=== PATIENT | male | born 1995 ===

== ENCOUNTER 2018-07-23 10:13 | Emergency (ER) | payer BC, MEDICAID ==
--- NOTE | 2018-07-23 10:26 | UC ---
Throat Pain/Nasal Ramu HPI - HPI Summary HPI Summary: 23 yo male presents with sore throat since last night. He tells me that his sore throat started abruptly last night and this morning it was worse. Last night also vomited 3-4 times and noticed a tinge of blood he thinks. He is able to eat and drink without difficulty, but does have pain. He also complains of a rash to his left lower abdomen around his waist line that has been there for a month or so - very itchy. He has been applying OTC creams with no relief. Denies fever, chills, cough, SOB, chest pain, abdominal pain, diarrhea. - History of Current Complaint Stated Complaint: SORE THROAT,RASH,VOMITTING Time Seen by Provider: 07/23/18 10:25 Hx Obtained From: Patient Onset/Duration: Sudden Onset Severity: Moderate Pain Intensity: 5 Pain Scale Used: 0-10 Numeric - Allergies/Home Medications Allergies/Adverse Reactions: Allergies Allergy/AdvReac Type Severity Reaction Status Date / Time No Known Allergies Allergy Verified 07/23/18 10:22 PMH/Surg Hx/FS Hx/Imm Hx - Additional Past Medical History Additional PMH: None Previously Healthy: Yes - Surgical History Surgical History: None - Family History Known Family History: Positive: None - Social History Occupation: Employed Full-time Lives: With Family Alcohol Use: Weekly Substance Use Type: None Smoking Status (MU): Light Every Day Tobacco Smoker Have You Smoked in the Last Year: Yes Review of Systems Constitutional: Negative Skin: Rash Eyes: Negative ENT: Sore Throat Respiratory: Negative Cardiovascular: Negative Gastrointestinal: Vomiting Genitourinary: Negative Neurovascular: Negative Neurological: Negative Psychological: Negative All Other Systems Reviewed And Are Negative: Yes Physical Exam - Summary Physical Exam Summary: GENERAL: NAD. WDWN. No pain distress. SKIN: Left waist line with 5.0cm diameter of flat hyperpigmentation with mild scaling. No bleeding, erythema, or drainage. HEENT: Head: AT/NC Eyes: Conjunctiva clear without inflammation or discharge. Ears: Hearing grossly normal. TMs intact, no bulging, erythema, or edema. Nose: Nasal mucosa pink and moist. NTTP maxillary and frontal sinus. Throat: Posterior oropharynx moderate erythema and 2+ tonsillar enlargement. No exudates. Uvula midline. No hoarse voice or muffled voice. NECK: Supple. Mild tonsillar LAD with TTP. CHEST: CTAB. No r/r/w. No accessory muscle use. Breathing comfortably and in no distress. CV: RRR. Without m/r/g. Pulses intact. Cap refill <2seconds NEURO: Alert. CN II-XII grossly intact. PSYCH: Age appropriate behavior. Triage Information Reviewed: Yes Vital Signs: Vital Signs: Temp Pulse Resp BP Pulse Ox 99.2 F 87 18 114/68 98 07/23/18 10:24 07/23/18 10:24 07/23/18 10:24 07/23/18 10:24 07/23/18 10:24 Laboratory Tests 07/23/18 10:24 Group A Strep Rapid Positive A Vital Signs Reviewed: Yes Throat Pain/Nasal Course/Dx - Course Course Of Treatment: POC strep positive. Tinea versicolor. - Differential Dx/Diagnosis Provider Diagnoses: Strep pharyngitis. Tinea versicolor Discharge - Sign-Out/Discharge Documenting (check all that apply): Patient Departure All imaging exams completed and their final reports reviewed: No Studies - Discharge Plan Condition: Stable Disposition: HOME Prescriptions: Amoxicillin/Clavulanate TAB* [Augmentin TAB 875*] 875 mg PO BID #20 tab Eucalyptus/Menthol [Cough Drops] 1 each PO QID PRN #1 box PRN Reason: Pain Ketoconazole 2 % CREAM (NF) [Nizoral 2% CREAM (NF)] 1 applic TOPICAL BID #1 tube Patient Education Materials: Strep Throat (ED), Tinea Versicolor (ED) Forms: *Work Release Referrals: No Primary Care Phys,NOPCP [Primary Care Provider] - Additional Instructions: If you develop a fever, shortness of breath, chest pain, new or worsening symptoms - please call your PCP or go to the ED. - Billing Disposition and Condition Condition: STABLE Disposition: Home
[2018-07-23 10:40] VITALS: BP 114/68
== END 2018-07-23 10:51 | disposition home or self-care (01) ==
LOC: UCEAST 10:13
DX: J02.0 Streptococcal pharyngitis (principal); B36.0 Pityriasis versicolor; F17.200 Nicotine dependence, unspecified, uncomplicated
CPT/HCPCS: 87651; 99201; G0463

== ENCOUNTER 2018-09-14 14:23 | Emergency (ER) | payer BC ==
--- NOTE | 2018-09-14 16:26 | UC ---
Throat Pain/Nasal Ramu HPI - HPI Summary HPI Summary: sore throat for 2 days body aches - History of Current Complaint Chief Complaint: UCRespiratory Stated Complaint: GENERAL ILLNESS/THROAT PAIN Time Seen by Provider: 09/14/18 16:04 Hx Obtained From: Patient Onset/Duration: Sudden Onset, Lasting Days - 2, Still Present Severity: Moderate Pain Intensity: 5 Pain Scale Used: 0-10 Numeric Cough: None Associated Signs & Symptoms: Positive: Negative - Allergies/Home Medications Allergies/Adverse Reactions: Allergies Allergy/AdvReac Type Severity Reaction Status Date / Time No Known Allergies Allergy Verified 09/14/18 14:42 Home Medications: Home Medications Ibuprofen 600 mg PO 09/14/18 [History] PMH/Surg Hx/FS Hx/Imm Hx Previously Healthy: Yes - Surgical History Surgical History: None - Family History Known Family History: Positive: None - Social History Occupation: Employed Full-time Lives: With Family Alcohol Use: Occasionally Alcohol Amount: once a month Substance Use Type: None Smoking Status (MU): Heavy Every Day Tobacco Smoker Type: Cigarettes Have You Smoked in the Last Year: Yes Cessation Counseling: Counseled 3+Min - 10 Min Review of Systems Constitutional: Negative Skin: Negative Eyes: Negative ENT: Sore Throat Respiratory: Negative Cardiovascular: Negative Gastrointestinal: Negative Genitourinary: Negative Motor: Negative Neurovascular: Negative Musculoskeletal: Negative Neurological: Negative Psychological: Negative Is Patient Immunocompromised?: No All Other Systems Reviewed And Are Negative: Yes Physical Exam Triage Information Reviewed: Yes Appearance: Well-Appearing, No Pain Distress, Well-Nourished Vital Signs: Initial Vital Signs Temp 99.0 F 09/14/18 14:38 Pulse 68 09/14/18 14:38 Resp 18 09/14/18 14:38 BP 128/81 09/14/18 14:38 Pulse Ox 100 09/14/18 14:38 Vital Signs Reviewed: Yes Eye Exam: Normal Eyes: Positive: Conjunctiva Clear ENT Exam: Normal ENT: Positive: Normal ENT inspection, Hearing grossly normal, Pharyngeal erythema, TMs normal, Tonsillar swelling, Uvula midline. Negative: Nasal congestion, Trismus, Muffled voice, Hoarse voice, Dental tenderness Dental Exam: Normal Neck exam: Normal Neck: Positive: Supple, Nontender, No Lymphadenopathy Respiratory Exam: Normal Respiratory: Positive: Chest non-tender, Lungs clear, Normal breath sounds, No respiratory distress, No accessory muscle use Cardiovascular Exam: Normal Cardiovascular: Positive: RRR, No Murmur, Pulses Normal, Brisk Capillary Refill Musculoskeletal Exam: Normal Musculoskeletal: Positive: Strength Intact, ROM Intact, No Edema Neurological Exam: Normal Neurological: Positive: Alert, Muscle Tone Normal Psychological Exam: Normal Skin Exam: Normal Diagnostics - Laboratory Diagnostic Studies Completed/Ordered: RST (-) Throat Pain/Nasal Course/Dx - Course Assessment/Plan: increase fluids, tylenol ibuprofen may start antibiodic if symptoms worsen follow with pcp prn - Differential Dx/Diagnosis Provider Diagnoses: pharyngitis, nicotine dependant Discharge - Sign-Out/Discharge Documenting (check all that apply): Patient Departure All imaging exams completed and their final reports reviewed: No Studies - Discharge Plan Condition: Stable Disposition: HOME Prescriptions: Amoxicillin PO (*) [Amoxicillin 500 MG CAP*] 500 mg PO TID #30 cap Patient Education Materials: Pharyngitis (ED) Forms: *Work Release Referrals: Care [facility] [Outside] - If Needed - Billing Disposition and Condition Condition: STABLE Disposition: Home
[2018-09-14 16:41] VITALS: BP 125/66
== END 2018-09-14 16:49 | disposition home or self-care (01) ==
LOC: UCEAST 14:23
DX: J02.9 Acute pharyngitis, unspecified (principal); M79.10 Myalgia, unspecified site; Z71.6 Tobacco abuse counseling; F17.210 Nicotine dependence, cigarettes, uncomplicated
CPT/HCPCS: 87651; 99212; G0463